=== PATIENT | male | born 1990 | race Two or more races ===

== ENCOUNTER 2024-07-16 07:05 | Emergency (ER) | payer MEDICAID, SELFPAY ==
[2024-07-16 07:06] VITALS: BMI 27.1
[2024-07-16 07:24] VITALS: BP 151/92; PULSE 67; RESP 22; TEMP 36.7; O2SAT 98; BMI 26.4
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
[2024-07-16] MEDS: IBUPROFEN TAB 600 MG TABLET PO (07:36)
--- NOTE | 2024-07-16 08:11 | XR_ITS ---
Examination: Hand, left 3 views Technique: Hand AP, oblique, lateral 3 views Date and time of exam: July 16, 2024 0818 hrs. Indications: Patient fell today with injury to the hand, hand pain Findings: No acute fracture No dislocation No foreign body Impression: No acute fracture
== END 2024-07-16 10:22 | disposition home or self-care (01) ==
PROVIDERS: Emergency Provider Emergency Medicine; PCP Physician Assistant
DX: S60.411A Abrasion of left index finger, initial encounter (principal); W05.1XXA Fall from non-moving nonmotorized scooter, initial encounter
CPT/HCPCS: 73130; 99283; A9270

== ENCOUNTER 2024-11-16 12:16 | Emergency (ER) | payer MEDICAID, SELFPAY ==
[2024-11-16 12:34] VITALS: BP 144/87; PULSE 77; RESP 18; TEMP 36.8; O2SAT 100; BMI 26.4
--- NOTE | 2024-11-16 12:39 | XR_ITS ---
Examination: PA lateral chest 2 views TECHNIQUE: Upright PA lateral chest 2 views Date and time: November 16, 2024 1003 hours INDICATIONS: Chest pain weakness fatigue hypertension today. FINDINGS: Normal heart size. No pneumonia or pulmonary edema The osseous structures are intact IMPRESSION: No pneumonia or pulmonary edema
--- NOTE | 2024-11-16 12:39 | EKG_ITS ---
[facility] Test Date: 2024-11-16 Pat Name: NICOLE DASILVA Department: Room: - Gender: Male [employer] Hand: : 1990 Requested By: Gerard Ford ([place]) Order Number: [id number] Reading MD: Gerard Ford ([place]) Measurements Intervals [place] Rate: 81 P: 58 MN: 120 QRS: 66 QRSD: 99 T: 49 QT: 362 QTc: 421 Interpretive Statements SINUS RHYTHM No previous ECG available for comparison /store/S0/[id number].pdf
--- NOTE | 2024-11-16 12:40 | PD.EDRME ---
Rapid Medical Screening Exam RME Arrival date/time: 11/16/24 12:16 33 male presents to the emergency department today for complaints of palpitations and fatigue today Chief Complaint: Arrhythmia/Palpitations Vital signs: Vital Signs Temperature 98.2 F 11/16/24 12:34 Pulse Rate 77 11/16/24 12:34 Respiratory Rate 18 11/16/24 12:34 Blood Pressure 144/87 H 11/16/24 12:34 Pulse Oximetry (%) 100 11/16/24 12:34 Oxygen Delivery Method Room Air 11/16/24 12:34
[2024-11-16 13:08] LABS: Basophils % (Auto) 0 % (0-2.5); Eosinophils # (Auto) 0.1 Thou/mm3 (0.0-0.5); Eosinophils % (Auto) 1 % (0-10); Hematocrit 37.5 % (41.0-53.0); Hemoglobin 13.4 g/dL (13.5-16.0); Immature Granulocytes % (Auto) 0 % (0-0); Immature Granulocytes Auto 0.01 Thou/mm3 (0.00-0.00); Lymphocytes # (Auto) 2.2 Thou/mm3 (1.0-4.8); Lymphocytes % (Auto) 29 % (10-50); Mean Corpuscular HGB Conc 35.7 g/dl (31.0-37.0); Mean Corpuscular Hemoglobin 29.7 pg (25.0-35.0); Mean Corpuscular Volume 83 fL (80-100); Monocytes # (Auto) 0.5 Thou/mm3 (0.0-0.8); Monocytes % (Auto) 7 % (0-12); Neutrophils # (Auto) 4.8 Thou/mm3 (1.8-7.7); Neutrophils % (Auto) 62 % (37-80); Nucleated Red Blood Cell % 0 /100 WBC (0); Platelet Count 205 Thou/mm3 (140-440); RDW Standard Deviation 40.1 fL (35.1-43.9); Red Blood Count 4.51 Miln/mm3 (4.50-5.90); White Blood Count 7.6 Thou/mm3 (3.8-10.6)
[2024-11-16 13:21] LABS: Alanine Aminotransferase 21 U/L (10-49); Albumin, Serum 4.8 gm/dL (3.5-5.0); Albumin/Globulin Ratio 2.2 (1.2-2.2); Alkaline Phosphatase 73 U/L (46-116); Anion Gap 14 (7-16); Aspartate Amino Transferase 25 U/L (0-34); BUN/Creatinine Ratio 18 Ratio (12-20); Bilirubin,Total 0.4 mg/dL (0.3-1.2); Blood Urea Nitrogen 16 mg/dL (9-23); Calcium 9.2 mg/dL (8.3-10.6); Calcium (Corrected) 9.2 mg/dL (8.5-10.1); Carbon Dioxide 19.9 mMol/L (20.0-31.0); Chloride 105 mMol/L (98-107); Creatinine (Component) 0.9 mg/dL (0.6-1.3); Estimated Creatinine Clearance 124.3 mL/min (>60); Globulin 2.2 gm/dL (2.3-3.5); Glucose 124 mg/dL (74-106); Osmolality,Calculated 279 (275-295); Potassium 3.4 mMol/L (3.4-5.1); Sodium 139 mMol/L (136-145); Troponin I < 0.020 ng/mL (0.0-0.045); eGFR > 60 See Note
[2024-11-16 14:16] LABS: Amphetamine/Methamp Scrn,U Negative (Negative); Barbiturate Screen,Urine Negative (Negative); Benzodiazepines Screen,Urine Negative (Negative); Benzoylecgonine Screen, Ur Negative (Negative); Fentanyl Screen,Urine Negative (Negative); Opiate Screen,Urine Negative (Negative); THC Screen,Urine Positive (Negative)
--- NOTE | 2024-11-16 15:00 | PC.NURSE ---
no answer in lobby
--- NOTE | 2024-11-16 16:08 | PC.NURSE ---
no answer when called to be revitaled
--- NOTE | 2024-11-16 17:25 | PC.NURSE ---
no answer in lobby
== END 2024-11-16 17:25 | disposition left against medical advice (07) ==
PROVIDERS: Nurse Practitioner Primary Care; Emergency Provider Emergency Medicine; PCP Nurse Practitioner Family
DX: R00.2 Palpitations (principal); R53.83 Other fatigue; Z53.29 Procedure and treatment not carried out because of patient's decision for other reasons
CPT/HCPCS: 36415; 71046; 80053; 80307; 84484; 85025; 93005; 99281

== ENCOUNTER 2024-12-02 22:55 | Emergency (ER) | payer MEDICAID, SELFPAY ==
[2024-12-02 22:57] VITALS: BMI 25.1
--- NOTE | 2024-12-02 23:04 | EKG_ITS ---
[facility] (Formerly [facility]3] Test Date: 2024-12-02 Pat Name: NICOLE DASILVA Department: Room: - Gender: Male Patient Educator: : 1990 Requested By: ED Temporary Provider Order Number: [id number] Reading MD: ED Temporary Provider Measurements Intervals [place] Rate: 68 P: 71 [place]: 146 QRS: 77 QRSD: 108 T: 66 QT: 376 QTc: 402 Interpretive Statements SINUS RHYTHM WITH SINUS ARRHYTHMIA Compared to ECG 11/16/2024 12:56:58 No significant changes /store/S0/[id number]/[id number]
[2024-12-02 23:15] VITALS: BP 125/69; PULSE 75; RESP 18; TEMP 36.8; O2SAT 100
--- NOTE | 2024-12-03 00:05 | EDNOTE_ITS ---
ED Anxiety RME/HPI General Chief Complaint: General Adult/Misc Complain Stated Complaint: DYSPNEA AND PALPITATIONS AFTER EATING Time Seen by Provider: 12/02/24 23:35 Arrival date/time: 12/02/24 22:55 34M with history of anxiety and drug use presents to ED with episode of SOB, heart palps, and body numbness/tingling after he ate something spicy. Patient takes Buspar for anxiety and has been taking them. Patient states he felt better prior to arrival in ED. Patient denies choking. Limitations: no limitations Related Data Previous Rx's ?Medication ?Instructions ?Recorded ibuprofen 800 mg tablet 800 mg PO TID PRN pain #30 t abs 07/16/24 Allergies Allergy/AdvReac Type Severity Reaction Status Date / Time NKA* Allergy Uncoded 12/02/24 23:03 Review of Systems Review of Systems Systems Reviewed: All systems reviewed, normal except as documented Constitutional Constitutional: Reports system reviewed and no additional complaints, except as documented, Denies fever(s) and Denies headache(s) ENT Ears, Nose, Mouth, and Throat: Denies disequilibrium and Denies headache(s) Cardiovascular Cardiovascular: Reports system reviewed and no additional complaints, except as documented, Reports as per HPI, Denies chest pain, Reports dyspnea and Reports palpitations Respiratory Respiratory: Reports system reviewed and no additional complaints, except as documented, Reports as per HPI, Denies cough and Reports dyspnea Gastrointestinal Gastrointestinal: Reports system reviewed and no additional complaints, except as documented, Denies abdominal pain, Denies nausea and Denies vomiting Musculoskeletal Musculoskeletal: Reports numbness and Reports tingling Neurologic Neurologic: Reports system reviewed and no additional complaints, except as documented, Reports as per HPI, Denies confusion, Denies disequilibrium, Denies headache(s), Reports numbness and Reports tingling Psychiatric Psychiatric: Denies confusion Endocrine Endocrine: Reports palpitations ED Exam General Limitations: Present no limitations General appearance: Present alert, in no apparent distress and anxious Head Head exam: Present atraumatic Eye Eye exam: Present normal appearance, PERRL and EOMI ENT ENT exam: Present normal exam, normal oropharynx and mucous membranes moist Neck Neck exam: Present normal inspection, full ROM and trachea midline Chest Chest inspection: Present normal inspection and symmetric chest wall rise Respiratory Respiratory exam: Present normal lung sounds bilaterally Cardiovascular Cardiovascular exam: Present regular rate, normal rhythm and normal heart sounds Abdominal Exam Abdominal exam: Present soft and normal bowel sounds Extremities Exam Extremities exam: Present normal inspection and full ROM Back Exam Back exam: Present normal inspection and full ROM Neurological Exam Neurological exam: Present alert, oriented X3 and CN II-XII intact Psychiatric Psychiatric exam: Present normal affect and normal mood Skin Skin exam: Present warm, dry, intact and normal color Course Quality Measures none Orders Category Date Time Status EKG (ED ONLY) *Do not use* NOW Care 12/02/24 23:04 Completed EKG (ED Only) Stat Exams 12/02/24 23:04 Draft Diazepam [Valium] Med 12/02/24 23:35 Discontinued 10 mg PO X1 ONE Vital Signs Vital signs: Vital Signs Temperature 98.2 F 12/02/24 23:15 Pulse Rate 75 12/02/24 23:15 Respiratory Rate 18 12/02/24 23:15 Blood Pressure 125/69 12/02/24 23:15 Pulse Oximetry (%) 100 12/02/24 23:15 Oxygen Delivery Method Room Air 12/02/24 23:15 Anxiety MDM Narrative MDM Narrative: 34M with history of anxiety and drug use presents to ED with episode of SOB, heart palps, and body numbness/tingling after he ate something spicy. Patient takes Buspar for anxiety and has been taking them. Patient states he felt better prior to arrival in ED. Patient denies choking. Physical exam reveals clear lungs. RRR. Normal WOB. Speech normal. Patient is afebrile, alert, but mildly anxious. EKG is NSR. Valium relieved symptoms. Patient data External records reviewed:: [facility] previous records Clinical information provided by:: patient Social determinants that could affect healthcare access:: mental health Patient has the following chronic illnesses:: anxiety/drug How is presenting disease/condition affected by chronic disease/condition?: caused by Evaluation data The following diagnostics were reviewed and interpreted by me:: EKG tracing(s) Lab and/or radiology exams considered but not ordered:: ordered Interpretation Summary: above Medications / Prescriptions Medications or Prescriptions considered but not ordered:: ordered Medication administrations:: Medication Administration History Discontinued Medications Diazepam (Diazepam 5 Mg Tablet) 10 mg PO X1 ONE Stop: 12/02/24 23:36 Consultations Consultation(s) initiated? (list below): No Diagnosis Differential diagnosis anxiety: hyperventilation, panic disorder and acute anxiety Most likely diagnosis given after review of the tests above:: panic attack Admission Indicated Admission indicated?: not indicated Admission Request Was there a request for admission?: No Disposition Plan Disposition Plan: Discharge Discharge Attestation Discharge Attestation: The patient and all family members were given an opportunity to ask questions and understood the discharge instructions. Discharge instructions specifically effects, indications for sooner follow up or return to the emergency department, and the expected course of current diagnosis. Patient condition: Stable Discharge Plan Plan Patient Disposition: HOME (Self Care) Discharge Disposition comment: Stable Prescriptions/Referrals Prescriptions/Med Rec: No Action ibuprofen 800 mg tablet 800 mg PO TID PRN (Reason: pain) Qty: 30 0RF Referrals: No Primary/Family,Physician [Primary Care Provider] - In 1 week Problem List Clinical Impression: Panic attack Patient/Caregiver Discharge Instructions Education Materials: Panic Disorder Tx, ED Panic Attack Additional Instructions: Please follow-up with PCP within 24-48 hours and return immediately if symptoms worsen. Print Language: Guinean Stand Alone Forms: Patient Portal Info Letter ZEB/[id number] Supervising Physician RONNIE Supervising Physician: Dr. Maddox
[2024-12-03] MEDS: DIAZEPAM 5 MG TABLET 10 MG PO (00:41)
== END 2024-12-03 03:42 | disposition home or self-care (01) ==
PROVIDERS: Emergency Provider Emergency Medicine
DX: F41.0 Panic disorder [episodic paroxysmal anxiety] (principal); I49.8 Other specified cardiac arrhythmias
CPT/HCPCS: 93005; 99283; A9270